=== PATIENT | male | born 1955 | race Caucasian/White ===

== ENCOUNTER 2017-10-22 11:10 | Emergency (ER) | payer BC ==
--- NOTE | 2017-10-22 11:49 | CT ---
CT HEAD NONCONTRAST: INDICATION: Right-sided weakness, right facial droop, slurred speech. FINDINGS: There is no evidence of intracranial hemorrhage, mass effect, or midline shift. Mild chronic microva scular ischemic disease is present. The ventricular system is age-appropriate in size. Imaged paran amanda sinuses are clear. IMPRESSION: 1. Mild chronic microvascular ischemic disease. 2. No acute intracranial hemorrhage or mass effect. POS: [facility]
[2017-10-22 11:57] LABS: #Basophils 0.2 thou/uL (0.0-0.2); #Eosinphils 0.4 thou/uL (0.0-0.7); #Lymphocytes 1.8 thou/uL (1.20-3.40); #Monocytes 0.5 thou/uL (0.11-0.59); #Neutrophils 4.5 thou/uL (1.40-6.50); %Basophils 2.3 % (0.0-1.0); %Eosinophils 5.6 % (0.0-10.0); %Lymphocytes 24.4 % (21.0-51.0); %Monocytes 7.1 % (0.0-10.0); %Neutrophils 60.6 % (42.0-75.0); Hemoglobin 15.8 g/dL (14.0-18.0); Mean Corpuscular Hemoglobin 28.7 pg (27.0-31.0); Mean Corpuscular Volume 84.5 fl (80.0-94.0); Mean Platelet Volume 7.2 fL (7.4-10.4); Platelet Count 402 thou/uL (130-400); RBC Distribution Width 13.8 % (11.5-14.5); Red Blood Cell (RBC) Count 5.49 mill/uL (4.70-6.10); White Blood Cell (WBC) Count 7.4 thou/uL (4.8-10.8)
[2017-10-22 12:01] LABS: Prothrombin Time 13.7 SEC (12.0-14.7)
[2017-10-22 12:18] LABS: ALT (SGPT) 13 U/L (8-55); AST (SGOT) 16 U/L (5-34); Albumin 4.4 g/dL (3.4-4.8); Alkaline Phosphatase 91 U/L (40-150); Anion Gap 15 mmol/L (10-20); BUN (Urea Nitrogen) 5 mg/dL (8.4-25.7); Bilirubin, Total 0.4 mg/dL (0.2-1.2); CK (CPK) 46 U/L (30-200); Calc. Creatinine Clearance 0 mL/min (70-130); Calcium 9.2 mg/dL (7.8-10.44); Carbon Dioxide 25 mmol/L (23-31); Chloride 97 mmol/L (98-107); Estimated GFR-MDRD Greater than 90; Globulin 2.6 g/dL (2.4-3.5); Glucose 116 mg/dL (80-115); Potassium 3.9 mmol/L (3.5-5.1); Sodium 133 mmol/L (136-145)
[2017-10-22 12:21] LABS: CKMB 1.2 ng/mL (0-6.6); Troponin I Less than 0.010 ng/mL (< 0.028)
== END 2017-10-22 12:36 | disposition left against medical advice (07) ==
LOC: ERS 11:10
DX: G45.9 Transient cerebral ischemic attack, unspecified (principal); I10 Essential (primary) hypertension; Z79.899 Other long term (current) drug therapy
CPT/HCPCS: 36415; 36416; 70450; 80053; 82550; 82553; 84484; 85025; 85610; 85730

== ENCOUNTER 2017-11-15 14:39 | Outpatient (CLI) | payer BC | END 2017-11-15 14:40 | disposition home or self-care (01) | LOC: BICULT 14:39 | PROVIDERS: ATTEND Family Medicine | DX: G45.9 Transient cerebral ischemic attack, unspecified (principal); I10 Essential (primary) hypertension; I65.23 Occlusion and stenosis of bilateral carotid arteries; Z86.73 Personal history of transient ischemic attack (TIA), and cerebral infarction without residual deficits | CPT/HCPCS: 93880 ==

== ENCOUNTER 2017-12-16 10:38 | Outpatient (CLI) | payer BC | END 2017-12-16 10:39 | disposition home or self-care (01) | LOC: BICCT 10:38 | PROVIDERS: ATTEND Family Medicine | DX: G45.9 Transient cerebral ischemic attack, unspecified (principal); I77.819 Aortic ectasia, unspecified site; R91.8 Other nonspecific abnormal finding of lung field | CPT/HCPCS: 71275 ==

== ENCOUNTER 2018-01-13 09:30 | Outpatient (CLI) | payer BC ==
--- NOTE | 2018-01-13 11:56 | PET ---
WHOLE BODY PET CT: CLINICAL HISTORY: Lung mass. Pulmonary nodule. COMPARISON: Reference made to prior CT from [facility]/16/2017 [facility]. FINDINGS: There is appropriate biodistribution of radiotracer activity. Fluorine-18 FDG was administered for the exam. FINDINGS: The previously noted ground glass nodule at the right middle lobe does persist by CT imaging, althoug h it does not demonstrate hypermetabolic activity. This is not confirmed as malignancy on the basis of this PET scan. Otherwise, there is no evidence of hypermetabolic mass or adenopathy of the imaged neck, check, abdom en, or pelvis. Incidental note of colonic diverticulosis and vascular calcification. IMPRESSION: Hypermetabolic activity is not confirmed within the previously mentioned ground glass nodule of the r ight middle lobe. This is not reliably characterized morphologically, on the basis of the provided a ttenuation correction, nondiagnostic CT images. Recommend a follow-up CT thorax in three to four mon ths for continued assessment, as the possibility of early malignancy is not excluded on the basis of this exam. The findings were telephoned to the patient's ordering physician, Aleja Alvarez M.D., at the time of the interpretation, 1115 hours, on 01/13/2018. CODE CR POS: [facility]
== END 2018-01-13 09:31 | disposition home or self-care (01) ==
LOC: PET 09:30
PROVIDERS: ATTEND Family Medicine
DX: R91.8 Other nonspecific abnormal finding of lung field (principal); R59.9 Enlarged lymph nodes, unspecified
CPT/HCPCS: 78815; A9552

== ENCOUNTER 2018-03-03 07:26 | Day surgery (SDC) | payer BC ==
[2018-03-02 14:35] VITALS: BMI 28.1
[~2018-03-03 07:26] MED LIST: Cyclopentolate 1% Opth Drop 2 ML BOT FS SCH; Fluorouracil 100 MG, Enoxaparin Sodium 25 MG, EPINEPHrine 0.3 MG in Ophthalmic Irrigati... FS SCH; Phenylephrine 2.5% Ophth Soln 5 ML BOT FS SCH
[2018-03-03] MEDS ORDERED: Cyclopentolate 1% Opth Drop 2 ML BOT ONE (08:09)
[2018-03-03] MEDS ORDERED: Phenylephrine 2.5% Ophth Soln 5 ML BOT ONE (08:09)
[2018-03-03] MEDS ORDERED: PROPOFOL 20 ML ONE (09:06)
[2018-03-03] MEDS ORDERED: Fentanyl 100 MCG/2 ML VIAL ONE (09:06)
[2018-03-03] MEDS ORDERED: Midazolam HCl 2 mg/2 ml Vial ONE (09:06)
--- NOTE | 2018-03-03 11:25 | OP ---
DATE OF PROCEDURE: 03/03/2018 PREOPERATIVE DIAGNOSIS: Rhegmatogenous retinal detachment, right eye. POSTOPERATIVE DIAGNOSIS: Rhegmatogenous retinal detachment, right eye. PROCEDURE: Pars plana vitrectomy and retinal detachment repair, right eye. SURGEON: Arturo Weston M.D. ANESTHESIA: Local with monitored anesthesia care. PROCEDURE IN DETAIL: The patient was identified in the preoperative holding area. Appropriate infor med consent for the planned surgical procedure on the right eye had been obtained. The patient was t ransported to the operative suite where appropriate cardiopulmonary monitoring established. Local an esthesia was obtained using retrobulbar and modified Van Lint lid block using 50:50 mixture of 4% lid ocaine, 0.75% bupivacaine. The patient was prepped and draped in the usual sterile manner for ophtha lmic surgery on the right eye. Lid speculum was placed in the right eye. The 25-gauge trocars were placed in conjunctiva and sclera supratemporally, inferotemporally, and supranasally. Infusion line was placed inferotemporally. Light pipe and vitreous cutter were inserted into the eye. Core vitrec jesus manuel was performed. Posterior hyaloid face was noted to be attached and this was elevated using vacu um suction and peeled into the retinal periphery at this point in time, holes at 9:00 and 6:30 were i dentified. Traction was removed from those holes. Posterior drain retinotomy was created along the 9 o'clock radian and complete air fluid exchange was performed with 10 minutes being allowed for flui d to drain posteriorly. Subretinal fluid was noted to be extremely thick and drain very slowly. A 3 60 laser was placed using endolaser delivery device with good treatment noted in all areas. Trocars 15% perfluoropropane gas was infused into the eye. Trocars were removed. Superior sclerotomy was conrad ture closed. Retrobulbar Kenalog and subconjunctival Ancef were placed. Atropine and antibiotic oin tment placed, and the eye was patched and shielded. Patient was taken the postoperative recovery uni t in good condition having suffered no immediate perioperative complications. DISCHARGE INSTRUCTIONS: The patient was instructed to keep patch and shield on, avoid lifting or dorothy ding, and follow up in the morning with Dr. Weston.
[2018-03-03] MEDS ORDERED: Maxitrol 0.1% Opth Oint 3.5 GM TUBE ONE (11:32)
[2018-03-03] MEDS ORDERED: Triamcinolone 40 MG/ML VIAL ONE (11:32)
[2018-03-03] MEDS ORDERED: CEFAZOLIN 1 GM VIAL ONE (11:32)
[2018-03-03] MEDS ORDERED: Lidocaine 4% PF 5 ML AMP ONE (11:32)
[2018-03-03] MEDS ORDERED: Lidocaine 1% PF 5 ML VIAL ONE ×2 (11:32)
[2018-03-03] MEDS ORDERED: PROPOFOL 200 MG/20 ML VIAL ONE (11:32)
[2018-03-03] MEDS ORDERED: Bupivacaine 0.75% 10 ML AMP ONE (11:32)
== END 2018-03-03 11:27 | disposition home or self-care (01) ==
LOC: SDC 07:26
PROVIDERS: ATTEND Ophthalmology Retina Specialist
PROC: 08T43ZZ Resection of Right Vitreous, Percutaneous Approach (ICD-10-PCS; principal; 2018-03-03)
DX: H33.021 Retinal detachment with multiple breaks, right eye (principal); Z79.82 Long term (current) use of aspirin; Z79.899 Other long term (current) drug therapy
CPT/HCPCS: 67025; J0171; J0690; J1650; J2001; J2250; J2704; J3010; J3301; J3490; J9190

== ENCOUNTER 2018-05-05 08:25 | Outpatient (CLI) | payer BC ==
--- NOTE | 2018-05-05 15:43 | CT ---
CT CHEST WITHOUT CONTRAST: Technique: Multiple axial tomograms were obtained through the chest without IV enhancement. Indications: Follow up chest x-ray, lung nodule. Comparison: CTA chest 12-16-17, whole body PET scan, 01-13-18. FINDINGS: The previous CT chest revealed a ground glass nodule opacity in the right middle lobe. This does not show hypermetabolic activity on the PET scan. On today's exam, the ground glass nodule in the right middle lobe is again seen and does not appear s ignificantly changed. It continues to measure approximately 1.8 cm AP dimension in the axial plane an d approximately 1.3 cm craniocaudal dimension in the coronal plane. The lung collazo otherwise appear clear. There is no infiltrate or effusion. There is a tiny 2-3 mm no dule left lower lobe peripherally, adjacent to the fissure which is stable. No evidence of metastatic adenopathy. Imaged upper abdomen is unremarkable. Osseous structures are unremarkable. IMPRESSION: 1. 1.8 cm ground glass nodule in the right middle lobe is again seen, not significantly changed from CT of 12-16-17. Recommend continued follow up. Suggest repeat exam in 6 months to re-evaluate. POS: [facility]
== END 2018-05-05 08:26 | disposition home or self-care (01) ==
LOC: BICCT 08:25
PROVIDERS: ATTEND Thoracic Surgery (Cardiothoracic Vascular Surgery)
DX: R91.8 Other nonspecific abnormal finding of lung field (principal); R91.1 Solitary pulmonary nodule
CPT/HCPCS: 71250

== ENCOUNTER 2021-05-07 09:45 | Outpatient (CLI) | payer BC ==
[2021-05-07 23:47] LABS: SARS-CoV-2 PCR by NAA Not Detected (NotDetected)
== END 2021-05-07 09:46 | disposition home or self-care (01) ==
LOC: LABBT 09:45
PROVIDERS: ATTEND Ophthalmology Retina Specialist
DX: Z01.812 Encounter for preprocedural laboratory examination (principal); Z20.822 Contact with and (suspected) exposure to COVID-19
CPT/HCPCS: U0003; U0005

== ENCOUNTER 2021-05-08 07:20 | Day surgery (SDC) | payer BC ==
[~2021-05-08 07:20] MED LIST changes: -Cyclopentolate 1% Opth Drop 2 ML BOT FS SCH; -Fluorouracil 100 MG, Enoxaparin Sodium 25 MG, EPINEPHrine 0.3 MG in Ophthalmic Irrigati... FS SCH; +Fluorouracil 100 MG, Enoxaparin Sodium 25 MG, EPINEPHrine 0.3 MG in Ophthalmic Irrigati... IRR SCH; -Phenylephrine 2.5% Ophth Soln 5 ML BOT FS SCH
[2021-05-08] MEDS ORDERED: Cyclopentolate 1% Opth Drop 2 ML BOT ONE (07:38)
[2021-05-08] MEDS ORDERED: Phenylephrine 2.5% Ophth Soln 5 ML BOT ONE (07:38)
[2021-05-08] MEDS ORDERED: Midazolam HCl 2 mg/2 ml Vial ONE ×2 (08:20→08:55)
[2021-05-08] MEDS ORDERED: Fentanyl 100 MCG/2 ML VIAL ONE (08:55)
[2021-05-08] MEDS ORDERED: CEFAZOLIN 1 GM VIAL ONE (09:03)
[2021-05-08] MEDS ORDERED: Lidocaine 4% PF 5 ML AMP ONE (09:03)
[2021-05-08] MEDS ORDERED: Triamcinolone 40 MG/ML VIAL ONE (09:03)
[2021-05-08] MEDS ORDERED: Bupivacaine PF 0.75% SDV 10 ML ONE (09:03)
[2021-05-08] MEDS ORDERED: PROPOFOL 200 MG/20 ML VIAL ONE (09:03)
[2021-05-08] MEDS ORDERED: Maxitrol 0.1% Opth Oint 3.5 GM TUBE ONE (09:03)
[2021-05-08] MEDS ORDERED: Lidocaine 1% PF 5 ML VIAL ONE (09:03)
[2021-05-08] MEDS ORDERED: Enoxaparin Sodium 30 MG/0.3 ML SYRINGE ONE (09:03)
== END 2021-05-08 11:05 | disposition home or self-care (01) ==
LOC: SDC 07:20
PROVIDERS: ATTEND Ophthalmology Retina Specialist
PROC: 08T53ZZ Resection of Left Vitreous, Percutaneous Approach (ICD-10-PCS; principal; 2021-05-08)
DX: H33.022 Retinal detachment with multiple breaks, left eye (principal); Z79.82 Long term (current) use of aspirin; Z79.899 Other long term (current) drug therapy
CPT/HCPCS: C1814; J0171; J0690; J1650; J2250; J2704; J3010; J3301; J3490; J9190

== ENCOUNTER 2021-08-11 15:54 | Outpatient (CLI) | payer BC ==
[2021-08-12 15:38] LABS: SARS-CoV-2 PCR by NAA Not Detected (NotDetected)
== END 2021-08-11 15:55 | disposition home or self-care (01) ==
LOC: LABBT 15:54
PROVIDERS: ATTEND Ophthalmology Retina Specialist
DX: Z01.812 Encounter for preprocedural laboratory examination (principal); H43.392 Other vitreous opacities, left eye; Z20.822 Contact with and (suspected) exposure to COVID-19
CPT/HCPCS: U0003; U0005

== ENCOUNTER 2021-08-14 05:52 | Day surgery (SDC) | payer BC ==
[2021-08-07 15:44] VITALS: BMI 26.6
[2021-08-14] MEDS ORDERED: Cyclopentolate 1% Opth Drop 2 ML BOT ONE (06:04)
[2021-08-14] MEDS ORDERED: Phenylephrine 2.5% Ophth Soln 5 ML BOT ONE (06:04)
[2021-08-14] MEDS ORDERED: EPINEPHrine 0.3 MG in Ophthalmic Irrigation Solution 500 ML IRR SCH (06:15)
[2021-08-14] MEDS ORDERED: PROPOFOL 20 ML ONE (06:20)
[2021-08-14] MEDS ORDERED: Fentanyl 100 MCG/2 ML VIAL ONE (06:20)
[2021-08-14] MEDS ORDERED: Midazolam HCl 2 mg/2 ml Vial ONE ×2 (06:20→06:52)
[2021-08-14] MEDS ORDERED: Lidocaine 4% PF 5 ML AMP ONE (07:09)
[2021-08-14] MEDS ORDERED: Triamcinolone 40 MG/ML VIAL ONE (07:09)
[2021-08-14] MEDS ORDERED: Maxitrol 0.1% Opth Oint 3.5 GM TUBE ONE (07:09)
[2021-08-14] MEDS ORDERED: Lidocaine 1% PF 5 ML VIAL ONE (07:09)
[2021-08-14] MEDS ORDERED: Bupivacaine PF 0.75% SDV 10 ML ONE (07:09)
[2021-08-14] MEDS ORDERED: CEFAZOLIN 1 GM VIAL ONE (07:09)
== END 2021-08-14 08:30 | disposition home or self-care (01) ==
LOC: SDC 05:52
PROVIDERS: ATTEND Ophthalmology Retina Specialist
PROC: 08T53ZZ Resection of Left Vitreous, Percutaneous Approach (ICD-10-PCS; principal; 2021-08-14)
PROC: 08NF3ZZ Release Left Retina, Percutaneous Approach (ICD-10-PCS; principal; 2021-08-14)
DX: H43.312 Vitreous membranes and strands, left eye (principal); Z79.82 Long term (current) use of aspirin; Z79.899 Other long term (current) drug therapy
CPT/HCPCS: J0171; J0690; J2250; J2704; J3010; J3301; J3490

== ENCOUNTER 2021-08-27 13:28 | Outpatient (CLI) | payer BC | END 2021-08-27 13:29 | disposition home or self-care (01) | LOC: BICCT 13:28 | PROVIDERS: ATTEND Thoracic Surgery (Cardiothoracic Vascular Surgery) | DX: R91.8 Other nonspecific abnormal finding of lung field (principal); J90 Pleural effusion, not elsewhere classified; J98.4 Other disorders of lung; K80.20 Calculus of gallbladder without cholecystitis without obstruction | CPT/HCPCS: 71250 ==

== ENCOUNTER 2021-08-28 12:21 | Outpatient (CLI) | payer BC ==
[2021-08-29 00:11] LABS: SARS-CoV-2 PCR by NAA Not Detected (NotDetected)
== END 2021-08-28 12:22 | disposition home or self-care (01) ==
LOC: LABBT 12:21
PROVIDERS: ATTEND Internal Medicine Critical Care Medicine
DX: Z01.812 Encounter for preprocedural laboratory examination (principal); J90 Pleural effusion, not elsewhere classified; Z20.822 Contact with and (suspected) exposure to COVID-19
CPT/HCPCS: U0003; U0005

== ENCOUNTER 2021-09-01 07:57 | Day surgery (SDC) | payer BC ==
[2021-09-01 11:18] LABS: Fluid, pH - Pleural Fld 7.37 (7.60 - 7.66)
[2021-09-01 11:37] LABS: RBC Count-Automated (BF) 9356 /cu.mm; WBC/Nucleated-Auto (BF) 2315 /cu.mm
[2021-09-01 11:40] LABS: Pleural Fluid, Protein 4.8 g/dL
[2021-09-01 12:39] LABS: BF Color Pink; Body Fluid Source Thoracentesis Fluid; Clarity Hazy (Clear); Tube # EDTA
[2021-09-01 12:41] LABS: BF Segmented Neutrophils 4 %; Eosinophils 5 %
[2021-09-01 12:42] LABS: Cell Count Non Hematic 45 %; Lymphocytes 45 %
== END 2021-09-01 10:10 | disposition home or self-care (01) ==
LOC: SDC 07:57
PROVIDERS: ATTEND Internal Medicine Critical Care Medicine
PROC: 0W993ZZ Drainage of Right Pleural Cavity, Percutaneous Approach (ICD-10-PCS; principal; 2021-09-01)
DX: J90 Pleural effusion, not elsewhere classified (principal); I10 Essential (primary) hypertension; M19.90 Unspecified osteoarthritis, unspecified site; N40.1 Benign prostatic hyperplasia with lower urinary tract symptoms; Z86.73 Personal history of transient ischemic attack (TIA), and cerebral infarction without residual deficits; Z79.82 Long term (current) use of aspirin; Z79.899 Other long term (current) drug therapy
CPT/HCPCS: 32555; 82150; 82945; 83615; 83986; 84157; 84478; 85060; 87070; 87116; 87205; 87206; 88112; 88305; 89051

== ENCOUNTER 2021-12-24 14:56 | Day surgery (SDC) | payer MEDICARE, BC ==
[2021-12-24] MEDS ORDERED: Lidocaine 1% (PF) 30 ML VIAL ONE (15:13)
[2021-12-24 18:19] LABS: Pleural Fluid, Protein 4.5 g/dL
[2021-12-24 18:30] LABS: RBC Count-Automated (BF) 6741 /cu.mm; WBC/Nucleated-Auto (BF) 551 /cu.mm
[2021-12-24 18:54] LABS: BF Color Yellow; Body Fluid Source Pleural Fluid; Clarity Hazy (Clear); Tube # EDTA
[2021-12-24 19:33] LABS: BF Segmented Neutrophils 7 %; Cell Count Non Hematic 47 %; Eosinophils 3 %; Lymphocytes 41 %
== END 2021-12-24 16:31 | disposition home or self-care (01) ==
LOC: SDC 14:56
PROVIDERS: ATTEND Internal Medicine
PROC: 0W993ZZ Drainage of Right Pleural Cavity, Percutaneous Approach (ICD-10-PCS; principal; 2021-12-24)
DX: J90 Pleural effusion, not elsewhere classified (principal)
CPT/HCPCS: 32554; 71045; 82945; 83615; 84157; 85060; 87070; 87205; 88112; 88305; 88341; 88342; 89051; J2001

== ENCOUNTER 2022-01-19 14:30 | Outpatient (CLI) | payer MEDICARE, BC | END 2022-01-19 14:31 | disposition home or self-care (01) | LOC: BICRAD 14:30 | PROVIDERS: ATTEND Thoracic Surgery (Cardiothoracic Vascular Surgery) | DX: J90 Pleural effusion, not elsewhere classified (principal); J94.8 Other specified pleural conditions; R91.8 Other nonspecific abnormal finding of lung field | CPT/HCPCS: 71046 ==

== ENCOUNTER 2022-01-30 16:17 | Outpatient (CLI) | payer MEDICARE, BC ==
[2022-01-30 18:27] LABS: Hemoglobin 11.6 g/dL (13.5-17.5); Mean Corpuscular HGB CONC 34.6 g/dL (32.0-36.0); Mean Corpuscular Hemoglobin 33.4 pg (27.0-33.0); Mean Corpuscular Volume 96.5 fl (81.2-95.1); Mean Platelet Volume 9.9 fl (7.4-10.4); Platelet Count 403 10x3/uL (150-450); RBC Distribution Width 13.4 % (11.5-14.5); Red Blood Cell (RBC) Count 3.47 10x6/uL (4.32-5.72)
[2022-01-30 18:48] LABS: Anion Gap 15 mmol/L (10-20); BUN (Urea Nitrogen) 4 mg/dL (8.4-25.7); Calc. Creatinine Clearance 0 mL/min (70-130); Calcium 8.2 mg/dL (7.8-10.44); Carbon Dioxide 22 mmol/L (23-31); Chloride 100 mmol/L (98-107); Estimated GFR 109; Glucose 90 mg/dL (80-115); Sodium 132 mmol/L (136-145)
[2022-01-30 18:57] LABS: Potassium 4.7 mmol/L (3.5-5.1)
== END 2022-01-30 16:18 | disposition home or self-care (01) ==
LOC: LABBT 16:17
PROVIDERS: ATTEND Thoracic Surgery (Cardiothoracic Vascular Surgery)
DX: Z01.812 Encounter for preprocedural laboratory examination (principal); Z20.822 Contact with and (suspected) exposure to COVID-19
CPT/HCPCS: 80048; 85027; 87811

== ENCOUNTER 2022-02-03 09:50 | Day surgery (SDC) | payer MEDICARE, BC ==
[2022-01-30 13:42] VITALS: BMI 25.1
[2022-02-03] MEDS ORDERED: Fentanyl 100 MCG/2 ML VIAL ONE (12:07)
[2022-02-03] MEDS ORDERED: EPINEPHrine 1 MG/ML AMP ONE (12:10)
[2022-02-03] MEDS ORDERED: Bupivacaine PF 0.5% 30 ML VIAL ONE (12:10)
[2022-02-03] MEDS ORDERED: CEFAZOLIN 2 GM VIAL ONE (12:20)
[2022-02-03] MEDS ORDERED: Sodium Chloride 0.9% 100 ML ONE (12:20)
[2022-02-03] MEDS ORDERED: fentaNYL Citrate/PF 100 MCG/2 ML SYRINGE ONE (12:28)
[2022-02-03] MEDS ORDERED: Calcium Chloride 1 GM/10 ML Abboject SYRINGE ONE (12:40)
[2022-02-03] MEDS ORDERED: Rocuronium Bromide 10 MG/ML (10ML VIAL) ONE (12:40)
[2022-02-03] MEDS ORDERED: Succinylcholine 200 MG/10 ml SYRINGE FS ONE (12:40)
[2022-02-03] MEDS ORDERED: Lidocaine 1% PF 5 ML VIAL ONE (12:40)
[2022-02-03] MEDS ORDERED: Phenylephrine 10 MG/ML VIAL ONE (12:40)
[2022-02-03] MEDS ORDERED: ePHEDrine 50 MG/ML VIAL ONE (12:40)
[2022-02-03] MEDS ORDERED: Ondansetron PF 4 MG/2 ML Vial ONE (12:40)
[2022-02-03] MEDS ORDERED: PROPOFOL 200 MG/20 ML VIAL ONE (12:40)
[2022-02-03] MEDS ORDERED: Glycopyrrolate 0.2 MG/ML 5 ML SYRINGE ONE (12:40)
[2022-02-03] MEDS ORDERED: SUGAMMADEX SODIUM 200 MG/2 ML VIAL ONE (13:31)
[2022-02-03] MEDS ORDERED: Promethazine HCl 25 MG/ML VIAL IVPB PRN (14:00)
[2022-02-03] MEDS ORDERED: Promethazine HCl 25 MG/ML VIAL IM PRN (14:00)
[2022-02-03] MEDS ORDERED: PACU-Morphine 4MG/ML VIAL SLOW IVP PRN (14:00)
== END 2022-02-03 16:25 | disposition home or self-care (01) ==
LOC: SDC 09:50
PROVIDERS: ATTEND Thoracic Surgery (Cardiothoracic Vascular Surgery)
PROC: 0BBK4ZX Excision of Right Lung, Percutaneous Endoscopic Approach, Diagnostic (ICD-10-PCS; principal; 2022-02-03)
DX: C34.91 Malignant neoplasm of unspecified part of right bronchus or lung (principal); J91.0 Malignant pleural effusion; I10 Essential (primary) hypertension; M19.90 Unspecified osteoarthritis, unspecified site; N40.1 Benign prostatic hyperplasia with lower urinary tract symptoms; Z86.73 Personal history of transient ischemic attack (TIA), and cerebral infarction without residual deficits; Z79.82 Long term (current) use of aspirin; Z79.899 Other long term (current) drug therapy
CPT/HCPCS: 88112; 88305; 88331; 88341; 88342; J0171; J0690; J2370; J2405; J2704; J3010; J3490; S0020

== ENCOUNTER 2022-02-18 16:07 | Outpatient (CLI) | payer MEDICARE, BC | END 2022-02-18 16:08 | disposition home or self-care (01) | LOC: BICRAD 16:07 | PROVIDERS: ATTEND Internal Medicine Hematology & Oncology | DX: J90 Pleural effusion, not elsewhere classified (principal); C34.90 Malignant neoplasm of unspecified part of unspecified bronchus or lung; J94.8 Other specified pleural conditions; J98.11 Atelectasis; C34.01 Malignant neoplasm of right main bronchus; D45 Polycythemia vera | CPT/HCPCS: 71046; 80053; 82248; 83615; 84100; 84550 ==

== ENCOUNTER 2022-02-25 12:02 | Outpatient (CLI) | payer MEDICARE, BC | END 2022-02-25 12:03 | disposition home or self-care (01) | LOC: SCSMRI 12:02 | PROVIDERS: ATTEND Internal Medicine Hematology & Oncology | DX: C34.01 Malignant neoplasm of right main bronchus (principal); D45 Polycythemia vera; I67.82 Cerebral ischemia; G93.89 Other specified disorders of brain | CPT/HCPCS: 70553 ==

== ENCOUNTER 2022-03-06 08:00 | Outpatient (CLI) | payer MEDICARE, BC | END 2022-03-06 08:01 | disposition home or self-care (01) | LOC: PET 08:00 | PROVIDERS: ATTEND Internal Medicine Hematology & Oncology | DX: C34.01 Malignant neoplasm of right main bronchus (principal); D45 Polycythemia vera | CPT/HCPCS: 78815; A9552 ==

== ENCOUNTER 2022-05-29 09:30 | Outpatient (CLI) | payer MEDICARE, BC | END 2022-05-29 09:31 | disposition home or self-care (01) | LOC: PET 09:30 | PROVIDERS: ATTEND Internal Medicine Hematology & Oncology | DX: C34.01 Malignant neoplasm of right main bronchus (principal); D45 Polycythemia vera | CPT/HCPCS: 78815; A9552 ==

== ENCOUNTER 2022-08-25 09:30 | Outpatient (CLI) | payer MEDICARE, BC | END 2022-08-25 09:31 | disposition home or self-care (01) | LOC: PET 09:30 | PROVIDERS: ATTEND Internal Medicine Hematology & Oncology | DX: C34.01 Malignant neoplasm of right main bronchus (principal); D45 Polycythemia vera; J90 Pleural effusion, not elsewhere classified; J98.11 Atelectasis; K80.20 Calculus of gallbladder without cholecystitis without obstruction | CPT/HCPCS: 78815; A9552 ==

== ENCOUNTER 2022-08-25 11:27 | Outpatient (CLI) | payer MEDICARE, BC | END 2022-08-25 11:28 | disposition home or self-care (01) | LOC: SCSMRI 11:27 | PROVIDERS: ATTEND Internal Medicine Hematology & Oncology | DX: C34.01 Malignant neoplasm of right main bronchus (principal); I67.82 Cerebral ischemia | CPT/HCPCS: 70553; 78815; 82565; A9552 ==

== ENCOUNTER → 2022-11-18 | Outpatient (CLI) | payer MEDICARE, BC | LOC: PET 08:45 | PROVIDERS: ATTEND Internal Medicine Hematology & Oncology | DX: C34.90 Malignant neoplasm of unspecified part of unspecified bronchus or lung (principal); J90 Pleural effusion, not elsewhere classified | CPT/HCPCS: 78815; A9552 ==

== ENCOUNTER 2022-12-31 13:34 | Outpatient (CLI) | payer MEDICARE, BC | END 2022-12-31 13:35 | disposition home or self-care (01) | LOC: ULT 13:34 | PROVIDERS: ATTEND Internal Medicine Hematology & Oncology | DX: Z51.11 Encounter for antineoplastic chemotherapy (principal); C34.01 Malignant neoplasm of right main bronchus; I08.3 Combined rheumatic disorders of mitral, aortic and tricuspid valves; Z79.899 Other long term (current) drug therapy | CPT/HCPCS: 93306 ==